=== PATIENT | female | born 1990 | race Caucasian/White ===

== ENCOUNTER 2017-08-04 17:26 | Emergency (ER) | payer MEDICAID ==
[~2017-08-04] VITALS: Ht 157.5 cm; Wt 65.0 kg
[2017-08-04 17:30] VITALS: Ht 157.5 cm; Wt 65.0 kg
[2017-08-04] MEDS ORDERED: SOD CHLORIDE 0.9% 1,000 ML IV STA (17:47)
[2017-08-04] MEDS ORDERED: morphine 4 MG/ML VIAL IV STA (17:47)
[2017-08-04 18:35] LABS: URINE BLOOD (Dip) POC Trace-intact (NEGATIVE)
[2017-08-04 18:45] LABS: BASOPHILS % 0.2 % (0.0-2.0); EOSINOPHILS # 0.4 10^3/ul (0.0-0.5); EOSINOPHILS % 2.3 % (0.0-7.0); HEMATOCRIT 39.2 % (37.0-47.0); HEMOGLOBIN 13.7 g/dl (12.0-16.0); LYMPHOCYTES # 1.7 10^3/ul (0.8-2.9); LYMPHOCYTES % 9.9 % (15.0-51.0); MEAN CORPUSCULAR HEMOGLOBIN 29.9 pg (29.0-33.0); MEAN CORPUSCULAR HGB CONC 34.9 g/dl (32.0-37.0); MEAN CORPUSCULAR VOLUME 85.6 fl (82.0-101.0); MEAN PLATELET VOLUME 10.6 fl (7.4-10.4); MONOCYTE # 1.2 10^3/ul (0.3-0.9); MONOCYTES % 6.6 % (0.0-11.0); NEUTROPHIL # 14.1 10^3/ul (1.6-7.5); NEUTROPHILS % 80.5 % (39.0-77.0); PLATELET COUNT 331 10^3/UL (140-415); RED BLOOD COUNT 4.58 10^6/ul (4.20-5.40); WHITE BLOOD COUNT 17.5 10^3/ul (4.8-10.8)
[2017-08-04 19:01] LABS: ALBUMIN 4.2 g/dl (3.3-4.9); ALBUMIN/GLOBULIN RATIO 1.31; BILIRUBIN,INDIRECT 0.1 mg/dl (0-1.1); BILIRUBIN,TOTAL 0.1 mg/dl (0.2-1.3); CALCIUM 9.4 mg/dl (8.4-10.2); CREATININE 0.74 mg/dl (0.44-1.00); POTASSIUM 3.3 mmol/L (3.5-5.1); TOTAL PROTEIN 7.4 g/dl (6.1-8.1)
--- NOTE | 2017-08-04 20:56 | RADRPT ---
PROCEDURE: CT Abdomen and Pelvis without contrast. CLINICAL INDICATION: Abdominal pain TECHNIQUE: CT scan of the abdomen and pelvis was performed on a multidetector high-resolution CT s canner without intravenous contrast. Coronal and sagittal reformatted images were obtained from the axial source images. Images were reviewed on a high-resolution PACS workstation. The total exam CTD I equals 7mGy and the total exam DLP equals 373mGy-cm. One or more of the following dose reduction t echniques were used: Automated exposure control, Adjustment of the mA and/or kV according to patient size, and/or use of iterative reconstruction technique. DICOM images are available. COMPARISON: None. FINDINGS: Evaluation of the solid organs is limited given the lack of intravenous contrast administration. The lung bases are clear. The liver, pancreas, spleen, and adrenals are grossly unremarkable. No focal pericholecystic inflammatory changes. No hydronephrosis. No renal or ureteral stone. No bowel obstruction. Normal-caliber appendix. No significant retroperitoneal lymphadenopathy, ascites or evidence of pneumoperitoneum. IMPRESSION: No renal or ureteral stone. No evidence of bowel obstruction or appendicitis. RPTAT: AA .Eyal Gillespie MD, Date Time Electronically viewed and signed by .Eyal Gillespie MD, MD on 08/04/2017 20:55 .T/
[2017-08-04 21:25] VITALS: BP 100/54; PULSE 54; RESP 17; TEMP 98
--- NOTE | 2017-08-04 21:39 | ERD ---
ER Documentation Chief Complaint Chief Complaint Complains of severe abdominal pain x 3 days HPI This is a 27-year-old female presenting to emerge department for abdominal pain , nausea, vomiting and diarrhea 2 hours. Patient states she has had 2 episodes of nonbloody nonbilious emesis in the last 2 hours. Patient states she has had nonbloody loose stool once in the past 2 hours. No black or tarry stools. No melena. Abdominal pain is generalized and nonspecific. No localized area of tenderness. No back or flank pain. No chest pain, shortness breath or difficulty breathing. No sore throat or difficulty swallowing. No fevers or chills. Last menstrual period was 1 week ago. No weakness or dizziness. No fatigue or body aches. ROS All systems reviewed and are negative except as per history of present illness. Allergies Allergies: Coded Allergies: No Known Drug Allergies (Verified Allergy, Mild, 05/02/07) PMhx/Soc Medical and Surgical Hx: pt denies Medical Hx, pt denies Surgical Hx Hx Alcohol Use: No Hx Substance Use: No Hx Tobacco Use: No Smoking Status: Never smoker Physical Exam Vitals Vital Signs Date Time Temp Pulse Resp B/P Pulse Ox O2 Delivery O2 Flow Rate FiO2 08/04/17 21:25 98.0 54 17 100/54 98 Room Air 08/04/17 17:30 97.6 81 20 118/59 99 Physical Exam Const: Alert, mild distress Head: Atraumatic Eyes: Normal Conjunctiva ENT: Normal External Ears, Nose and Mouth. Neck: Full range of motion..~ No meningismus. Resp: Clear to auscultation bilaterally. No wheezing, rhonchi or crackles. No stridor or labored breathing. Cardio: Regular rate and rhythm, no murmurs Abd: Soft, generalized tenderness tender, non distended. Normal bowel sounds. Negative Brito sign. No McBurney point tenderness. Skin: No petechiae or rashes Back: No midline or flank tenderness Ext: No cyanosis, or edema Neur: Awake and alert Psych: Normal Mood and Affect Result Diagram: 08/04/17182908/04/171829 Results 24 hrs Laboratory Tests Test 08/04/17 18:30 08/04/17 18:35 08/04/17 21:36 White Blood Count 17.510^3/ul Red Blood Count 4.5810^6/ul Hemoglobin 13.7g/dl Hematocrit 39.2% Mean Corpuscular Volume 85.6fl Mean Corpuscular Hemoglobin 29.9pg Mean Corpuscular Hemoglobin Concent 34.9g/dl Red Cell Distribution Width 13.0% Platelet Count 10169^3/UL Mean Platelet Volume 10.6fl Neutrophils % 80.5% Lymphocytes % 9.9% Monocytes % 6.6% Eosinophils % 2.3% Basophils % 0.2% Nucleated Red Blood Cells % 0.0/100WBC Neutrophils # 14.110^3/ul Lymphocytes # 1.710^3/ul Monocytes # 1.210^3/ul Eosinophils # 0.410^3/ul Basophils # 0.010^3/ul Nucleated Red Blood Cells # 0.010^3/ul Sodium Level 138mmol/L Potassium Level 3.3mmol/L Chloride Level 102mmol/L Carbon Dioxide Level 26mmol/L Anion Gap 13 Blood Urea Nitrogen 16mg/dl Creatinine 0.74mg/dl Glucose Level 92mg/dl Calcium Level 9.4mg/dl Total Bilirubin 0.1mg/dl Direct Bilirubin 0.00mg/dl Indirect Bilirubin 0.1mg/dl Aspartate Amino Transf (AST/SGOT) 33IU/L Alanine Aminotransferase (ALT/SGPT) 49IU/L Alkaline Phosphatase 86IU/L Total Protein 7.4g/dl Albumin 4.2g/dl Globulin 3.20g/dl Albumin/Globulin Ratio 1.31 Lipase 150U/L Serum HCG, Qualitative NEGATIVE Bedside Urine pH (LAB) 8.5 Bedside Urine Protein (LAB) Trace Bedside Urine Glucose (UA) Negative Bedside Urine Ketones (LAB) 1+ Bedside Urine Blood Trace-intact Bedside Urine Nitrite (LAB) Negative Bedside Urine Leukocyte Esterase (L Negative Bedside Glucose 103mg/dL Current Medications Medications (Trade) Dose Ordered Sig/Ryne Route PRN Reason Start Time Stop Time Status Last Admin Dose Admin Sodium Chloride (NS) 1,000 ml @ 1,000 mls/hr Q1H STAT IV 08/04/17 17:47 08/04/17 18:46 DC 08/04/17 18:38 Morphine Sulfate (morphine) 4 mg ONCE STAT IV 08/04/17 17:47 08/04/17 17:50 DC 08/04/17 18:38 Procedures/MDM Patient: YASMANY ZENDEJAS : 1990 Age: 27 Sex: F MR #: [id number] DOS: 08/04/171944 Ordering MD: LESLIE MORENO NP [facility] Room/Bed: PROCEDURE: CT Abdomen and Pelvis without contrast. CLINICAL INDICATION: Abdominal pain TECHNIQUE: CT scan of the abdomen and pelvis was performed on a multidetector high-resolution CT scanner without intravenous contrast. Coronal and sagittal reformatted images were obtained from the axial source images. Images were reviewed on a high-resolution PACS workstation. The total exam CTDI equals 7mGy and the total exam DLP equals 373mGy-cm. One or more of the following dose reduction techniques were used: Automated exposure control, Adjustment of the mA and/or kV according to patient size, and/or use of iterative reconstruction technique. DICOM images are available. COMPARISON: None. FINDINGS: Evaluation of the solid organs is limited given the lack of intravenous contrast administration. The lung bases are clear. The liver, pancreas, spleen, and adrenals are grossly unremarkable. No focal pericholecystic inflammatory changes. No hydronephrosis. No renal or ureteral stone. No bowel obstruction. Normal-caliber appendix. No significant retroperitoneal lymphadenopathy, ascites or evidence of pneumoperitoneum. IMPRESSION: No renal or ureteral stone. No evidence of bowel obstruction or appendicitis. EKG: As interpreted by myself and Dr. Jorgensen Rate/Rhythm: Normal sinus rhythm with heart rate 77 bpm QRS, ST, T-waves: No changes consistent w/ acute ischemia Impression: No evidence of ischemia or arrhythmia MDM: This is a 27-year-old female presenting to emergency department for generalized, nonspecific abdominal pain for the past 2 hours. Patient rates pain 5/10. Patient is afebrile and vital signs are stable. Patient is tender throughout abdominal quadrants. Labs, urine, IV fluids ordered. Patient given morphine 4 mg and Zofran 4 mg IV. Upon reassessment, patient states pain has improved significantly. Patient denies any abdominal pain at this time. CBC shows white blood cells 17.6 with neutrophilia. CMP shows potassium 3.3 otherwise unremarkable. Normal glucose. Normal liver enzymes. Normal creatinine BUN.Urine shows trace protein, 1+ ketones and trace blood. CT abdomen and pelvis reviewed by radiologist as no renal or ureteral stone. No evidence of bowel obstruction or appendicitis. Vital signs are stable. Patient remains afebrile. Upon discharge, patient states that she started to feel dizzy and lowered patient to the floor. Patient did not fall or lose consciousness. Patient did not hit her head. Patient states she has not eaten since this morning. Patient placed in a recliner and vital signs retaken. Blood pressure is 100/54 and heart rate is 54. EKG performed. Accuchek is 103. EKG shows normal sinus rhythm with no STEMI. Upon recheck of patient, she is unable to be located in the ER. Low suspicion for acute surgical abdomen, obstruction, peritonitis, acute cholangitis, acute cholecystitis or pancreatitis. Patient is appropriate for outpatient management and can follow up with their PCP in 2-3 days. Patient instructed to return to the ED in 8 hours for abdominal pain recheck. Patient instructed to return to ED sooner if pain worsens or is intolerable, high fever or new symptoms such as anorexia, not tolerating PO, severe diarrhea or chest pain. Patient verbalizes understanding. Kinyarwanda translation used during this encounter. Disclaimer: Inadvertent spelling and grammatical errors are likely due to EHR/ dictation software use and do not reflect on the overall quality of patient care. Also, please note that the electronic time recorded on this note does not necessarily reflect the actual time of the patient encounter. Departure Diagnosis: Primary Impression: Abdominal pain Additional Impression: Viral gastroenteritis Condition: Stable Patient Instructions: Abdominal Pain [facility] Usted se ugalde hecho un examen mdico de control que le indica que no est en jayna condicin que requiera tratamiento urgente en el Departamento de Emergencia. Un estudio ms profundo y el tratamiento de zavala condicin pueden esperar sin ningn riesgo hasta que usted sea atendida/o en el consultorio de zavala mdico o jayna cl norbert. Es responsabilidad suya arreglar jayna sung para el seguimiento del vazquez. MANEJO DE CONDICIONES NO URGENTES EN EL FUTURO 1) Si usted tiene un mdico de atencin primaria: Usted debera llamar a zavala mdico de atencin primaria antes de venir al departamento de emergencia. Despus de las horas de consultorio, zavala doctor o zavala asociado/a est disponible por telfono. El mdico o enfermero de maryann en el servicio telefnico puede asesorarle por gracy medio para atender el problema, o avzquez contrario se puede programar jayna sung. 2) Si usted no tiene un mdico de atencin primaria: Llame al mdico o clnica de referencia que aparece [address] las horas de consultorio para hacer jayna sung para que le vean. CLINICAS: [facility] [id number] [facility] 252 [phone] [facility] [phone] [place] [id number] [phone] [place] [id number] [phone] [facility]. [phone] [facility] () Usted se ugalde hecho un examen mdico de control que le indica que no est en jayna condicin que requiera tratamiento urgente en el Departamento de Emergencia. Un estudio ms profundo y el tratamiento de zavala condicin pueden esperar sin ningn riesgo hasta que usted sea atendida/o en el consultorio de zavala mdico o jayna cl norbert. Es responsabilidad suya arreglar jayna sung para el seguimiento del vazquez. MANEJO DE CONDICIONES NO URGENTES EN EL FUTURO 1) Si usted tiene un mdico de atencin primaria: Usted debera llamar a zavala mdico de atencin primaria antes de venir al departamento de emergencia. Despus de las horas de consultorio, zavala doctor o zavala asociado/a est disponible por telfono. El mdico o enfermero de maryann en el servicio telefnico puede asesorarle por gracy medio para atender el problema, o vazquez contrario se puede programar jayna sung. 2) Si usted no tiene un mdico de atencin primaria: Llame al mdico o condado institucions de referencia que aparece [place] las horas de consultorio para hacer jayna sung para que le vean. SI USTED NO PUEDE PAGAR PARA JOAQUINA UN MEDICO puede ir a: [facility] [address] [place] [address] [facility] [address] [place] [address] [facility] [address] [place] [address] [facility] [address] [place], [place] [phone] Additional Instructions: Vuelva a la serg de emergencias en 8 horas para volver a revisar el dolor abdominal. Vuelva a Ed para cualquier fiebre isreal, dolor en el pecho, dificultad para respirar, respiracin entrecortada, sibilancias, vmitos, diarrea, dolor abdominal o cualquier sntoma nuevo o empeoramiento. LESLIE BRODY NP Aug 04, 2017 21:39
== END 2017-08-04 23:53 | disposition home or self-care (01) ==
LOC: FTE 17:26
DX: A08.4 Viral intestinal infection, unspecified (principal); R07.9 Chest pain, unspecified
CPT/HCPCS: 36415; 74176; 80053; 81003; 82962; 83690; 84703; 85025; 93005; 96374; J2270; J7030; Z7502

== ENCOUNTER 2019-06-27 16:16 | Emergency (ER) | payer SELFPAY ==
[~2019-06-27] VITALS: Ht 152.4 cm; Wt 60.4 kg
[~2019-06-27 16:16] MED LIST: BEN50 PO; EPIN0.3P4 INJ; FAMO-96 PO; ONDA4TAB14 PO; PRED20TA PO
[2019-06-27 16:18] VITALS: BP 131/60; PULSE 80; RESP 24; Ht 152.4 cm; Wt 60.4 kg
[2019-06-27] MEDS ORDERED: FAMOTIDINE 20 MG TAB PO ONE (17:00)
[2019-06-27] MEDS ORDERED: predniSONE 20 MG TAB PO ONE (17:00)
[2019-06-27] MEDS ORDERED: DIPHENHYDRAMINE 50 MG CAP PO ONE (17:00)
== END 2019-06-27 17:27 | disposition home or self-care (01) ==
LOC: FTE 16:16
DX: T78.1XXA Other adverse food reactions, not elsewhere classified, initial encounter (principal)
CPT/HCPCS: 99283; J7512

== ENCOUNTER 2019-07-02 18:03 | Emergency (ER) | payer SELFPAY ==
[~2019-07-02] VITALS: Wt 90.0 kg
[2019-07-02 18:10] VITALS: BP 123/99; PULSE 97; RESP 18
== END 2019-07-02 19:55 | disposition left against medical advice (07) ==
LOC: FTE 18:03
DX: Z53.21 Procedure and treatment not carried out due to patient leaving prior to being seen by health care provider (principal)